=== PATIENT | female | born 1940 | race Caucasian/White ===

== ENCOUNTER 2016-08-19 15:19 | Inpatient (IN) | payer OTHER, MEDICARE ==
[~2016-08-19] VITALS: Ht 160 cm; Wt 59.8 kg
[~2016-08-19 15:19] MED LIST: ACYCLOVIR800 MG PO; ADVAIR 250/501 DISK IH; AMBIEN10 MG PO; Ambien PO; CALCIUM ACETAT667 MG PO; CALCIUM OYSTER500 MG PO; CARNITOR100 MG/ML PO; CEFUROXIME500 MG PO; CEPHALEXIN250 MG PO; CIPROFLOXACIN500 M1 PO; EPOGEN,PRO2000 UNITS IV; EXEMESTANE25 MG PO; EXTRA STRENGTH500 M1 PO; Epogen,Procrit IV; FAMOTIDINE20 MG PO; FLEXERIL10 MG PO; FLORASTOR250 MG PO; FOLBEE PLUS TABL5 MG PO; HECTOROL2 MCG/1 ML IV; HYDROCODON-ACE1 EAC7 PO; LEVOCARNIT100 MG/1 M PO; LOPRESSOR50 MG PO; Levaquin PO; MACROBID100 MG PO; METRONIDAZOLE500 MG PO; NEPHRO-VITE,1 TABLET PO; NORCO 5/3251 TABLET PO; Nephro-Vite,Rena-Vit PO; PHOSLYRA667 MG/5 M PO; PROCHLORPERAZINE5 MG PO; PROCRIT3000 UNIT1 IV; RESTORIL15 MG PO; TYLENOL 8 HOUR650 MG PO; TYLENOL REGULA325 MG PO; Tums PO; Tylenol Regular Stre PO; VENTOLIN HFA18 GM IH; VITAMIN C250 MG PO; ZOLPIDEM TARTRAT5 MG PO
[2016-08-19 16:20] LABS: EOSINOPHIL (%) 3.2 % (0-5); EOSINOPHIL COUNT 0.1 K/uL (0-0.3); IMMATURE GRANULOCYTE (%) 0.5 % (0.0-0.7); INSTRUMENT ABS NEUTROPHIL CT 2.2 K/uL; MCH 28.9 PG (29.0-34.0); MCHC 30.3 G/DL (30.0-36.0); MCV 95.5 FL (83-99); MONOCYTE (%) 9.6 % (3-12); MONOCYTE COUNT 0.4 K/uL (0-0.8); NEUTROPHIL (%) 59.1 % (45-76); NEUTROPHIL COUNT 2.2 K/uL (1.8-6.4); RBC DIS.WIDTH-CV 17.9 % (11.8-14.6); RBC DIS.WIDTH-SD 62.4 % (39-53); RED BLOOD COUNT 3.56 M/uL (3.80-5.20); WHITE BLOOD COUNT 3.8 K/uL (4.1-10.2)
[2016-08-19 16:31] LABS: CHLORIDE 107 mEq/L (99-109); SODIUM 140 mEq/L (136-147)
[2016-08-19 16:33] LABS: GLUCOSE 83 mg/dL (70-99)
[2016-08-19 16:34] LABS: ANION GAP 15 MEQ/L (2-14)
[2016-08-19 16:35] LABS: TOTAL BILIRUBIN 0.7 mg/dL (0.0-1.0)
[2016-08-19 16:37] LABS: ALKALINE PHOSPHATASE 98 IU/L (3-129); GFR ESTIMATE (CALCULATED) 5 mL/min/
[2016-08-19 16:38] LABS: UREA NITROGEN (BUN) 83 mg/dL (9-23)
[2016-08-19 16:40] LABS: LIPASE 28 U/L (1.0-51.0)
[2016-08-19 17:17] LABS: HEMATOLOGY COMMENT 1 SN; MEAN PLAT.VOLUME 10.7 uM^3 (9.5-12.4); PLAT.SUFFICIENCY DECREASED; PLATELET COUNT 91 K/uL (156-360)
[2016-08-19] MEDS ORDERED: ZOLPIDEM TARTRA10 MG PO (19:15)
[2016-08-19] MEDS ORDERED: CARVEDILOL6.25 MG PO (19:16)
[2016-08-19] MEDS ORDERED: ATARAX,VISTARIL25 MG PO (19:16)
[2016-08-19] MEDS ORDERED: FUROSEMIDE80 MG PO (19:17)
[2016-08-19 19:53] LABS: ADD MIUA? YES; BILIRUBIN NEGATIVE; BLOOD SMALL; COLOR YELLOW ((YELLOW)); GLUCOSE (STRIP) 50; KETONES NEGATIVE; LEUKOCYTES LARGE; NITRITE NEGATIVE; PROTEIN (STRIP) 100; UROBILINOGEN 0.2 MG/DL (0.2-1.0)
[2016-08-19] MEDS ORDERED: COREG12.5 M1 PO (21:02)
[2016-08-19] MEDS ORDERED: CIPRO500 MG PO (21:05)
[2016-08-19] MEDS ORDERED: FLAGYL500 MG PO (21:05)
[2016-08-19 21:13] LABS: BACTERIA 2+ /HPF; EPITHELIAL CELLS 1+ /HPF; MUCUS NONE SEEN /LPF; UCUL ADDED? YES; WHITE BLOOD CELLS TNTC /HPF (0-5)
[2016-08-20 04:21] VITALS: BP 175/81
[2016-08-20 08:28] VITALS: BP 174/78
[2016-08-20 09:46] LABS: INTER. NORMALIZED RATIO 1.2; PROTHROMBIN TIME 11.9 (9.2-11.2); PTT 29.8 (25-32)
[2016-08-20 10:48] LABS: C DIFF TOXIN NEGATIVE (NEGATIVE); PROBE CHECK PASS; SPECIMEN PROCESSING CONTROL PASS
[2016-08-20 10:58] VITALS: BP 126/59
[2016-08-20 12:11] LABS: METH RESISTANT S AUREUS PCR NEGATIVE (NEGATIVE)
[2016-08-20 12:12] LABS: PROBE CHECK PASS; SPECIMEN PROCESSING CONTROL PASS
[2016-08-20 13:11] LABS: CHLORIDE 107 mEq/L (99-109); SODIUM 137 mEq/L (136-147)
[2016-08-20 13:13] LABS: GLUCOSE 93 mg/dL (70-99)
[2016-08-20 13:14] LABS: ANION GAP 15 MEQ/L (2-14)
[2016-08-20 13:17] LABS: GFR ESTIMATE (CALCULATED) 5 mL/min/
[2016-08-20 13:18] LABS: UREA NITROGEN (BUN) 90 mg/dL (9-23)
[2016-08-20 16:51] VITALS: BP 158/69
[2016-08-20 18:36] LABS: HEMATOCRIT 29.9 % (36.0-46.0); MCHC 31.4 G/DL (30.0-36.0); MCV 92.3 FL (83-99); MEAN PLAT.VOLUME 9.5 uM^3 (9.5-12.4); PLATELET COUNT 93 K/uL (156-360); RBC DIS.WIDTH-SD 61.3 % (39-53); RED BLOOD COUNT 3.24 M/uL (3.80-5.20); WHITE BLOOD COUNT 3.4 K/uL (4.1-10.2)
[2016-08-20 20:39] VITALS: BP 157/70
[2016-08-20 23:18] VITALS: BP 133/62
[2016-08-21 00:44] LABS: HEMATOCRIT 29.5 % (36.0-46.0); MCH 29.6 PG (29.0-34.0); MCHC 31.9 G/DL (30.0-36.0); MCV 92.8 FL (83-99); PLATELET COUNT 98 K/uL (156-360); RBC DIS.WIDTH-CV 18.2 % (11.8-14.6); RBC DIS.WIDTH-SD 62.2 % (39-53); RED BLOOD COUNT 3.18 M/uL (3.80-5.20); WHITE BLOOD COUNT 3.1 K/uL (4.1-10.2)
[2016-08-21 04:37] VITALS: BP 138/60
[2016-08-21 07:00] LABS: HEMATOCRIT 30.6 % (36.0-46.0); MCH 28.7 PG (29.0-34.0); MCHC 30.7 G/DL (30.0-36.0); MCV 93.6 FL (83-99); MEAN PLAT.VOLUME 9.3 uM^3 (9.5-12.4); PLATELET COUNT 103 K/uL (156-360); RBC DIS.WIDTH-CV 18.1 % (11.8-14.6); RBC DIS.WIDTH-SD 62.9 % (39-53); RED BLOOD COUNT 3.27 M/uL (3.80-5.20); WHITE BLOOD COUNT 2.9 K/uL (4.1-10.2)
[2016-08-21 07:27] LABS: ANION GAP 13 MEQ/L (2-14); CHLORIDE 98 MEQ/L (99-109); GLUCOSE 79 mg/dL (70-99); IRON 73 MCG/DL (35-150); SAMPLE HEMOLYSIS CHECK 0; SAMPLE ICTERIC CHECK 0; SAMPLE LIPEMIA CHECK 0; SODIUM 138 MEQ/L (136-147)
[2016-08-21 07:28] LABS: GFR ESTIMATE (CALCULATED) 9 mL/min/; POTASSIUM 4.1 MEQ/L (3.7-5.4); UREA NITROGEN (BUN) 34 mg/dL (9-23)
[2016-08-21 07:55] VITALS: BP 134/64
[2016-08-21 09:21] LABS: HEMATOCRIT 31.6 % (36.0-46.0); MCH 29.1 PG (29.0-34.0); MCV 93.8 FL (83-99); MEAN PLAT.VOLUME 9.6 uM^3 (9.5-12.4); PLATELET COUNT 108 K/uL (156-360); RBC DIS.WIDTH-CV 18.2 % (11.8-14.6); RBC DIS.WIDTH-SD 62.4 % (39-53); RED BLOOD COUNT 3.37 M/uL (3.80-5.20)
[2016-08-21 12:05] VITALS: BP 94/48
[2016-08-21 12:57] LABS: FERRITIN 2477 NG/ML (10-291)
[2016-08-21 15:51] LABS: MCH 29.5 PG (29.0-34.0); MCHC 30.9 G/DL (30.0-36.0); MCV 95.2 FL (83-99); MEAN PLAT.VOLUME 9.4 uM^3 (9.5-12.4); PLATELET COUNT 107 K/uL (156-360); RBC DIS.WIDTH-CV 18.1 % (11.8-14.6); RBC DIS.WIDTH-SD 63.4 % (39-53); RED BLOOD COUNT 3.36 M/uL (3.80-5.20); WHITE BLOOD COUNT 3.4 K/uL (4.1-10.2)
[2016-08-21 16:56] VITALS: BP 108/56
[2016-08-21 19:14] VITALS: BP 113/53
[2016-08-21 23:52] VITALS: BP 106/49
[2016-08-22 01:05] LABS: HEMATOCRIT 30.2 % (36.0-46.0); MCHC 30.8 G/DL (30.0-36.0); MCV 94.1 FL (83-99); MEAN PLAT.VOLUME 9.4 uM^3 (9.5-12.4); PLATELET COUNT 93 K/uL (156-360); RBC DIS.WIDTH-CV 18.1 % (11.8-14.6); RBC DIS.WIDTH-SD 62.2 % (39-53); RED BLOOD COUNT 3.21 M/uL (3.80-5.20); WHITE BLOOD COUNT 3.3 K/uL (4.1-10.2)
[2016-08-22 04:44] VITALS: BP 115/56
[2016-08-22 07:37] VITALS: BP 110/53
[2016-08-22 07:49] LABS: HEMATOCRIT 31.4 % (36.0-46.0); MCH 29.8 PG (29.0-34.0); MCHC 30.9 G/DL (30.0-36.0); MCV 96.3 FL (83-99); PLATELET COUNT 113 K/uL (156-360); RBC DIS.WIDTH-CV 18.3 % (11.8-14.6); RBC DIS.WIDTH-SD 64.3 % (39-53); RED BLOOD COUNT 3.26 M/uL (3.80-5.20); WHITE BLOOD COUNT 3.1 K/uL (4.1-10.2)
[2016-08-22 11:29] VITALS: BP 114/56
[2016-08-22] MEDS ORDERED: BENTYL20 MG PO (12:39)
[2016-08-22] MEDS ORDERED: CARVEDILOL25 MG PO (12:42)
[2016-08-22] MEDS ORDERED: NIFEDIPINE ER30 MG PO (12:42)
[2016-08-22] MEDS ORDERED: LOPERAMIDE2 MG PO (12:43)
[2016-08-22] MEDS ORDERED: PROTONIX40 MG PO (12:53)
[2016-08-22 18:30] VITALS: BP 136/62
== END 2016-08-22 18:39 | disposition home or self-care (01) | DRG 689 ==
LOC: EME 15:19 → EDOF 08-20 03:17 → 4EAST 08-20 03:17
PROVIDERS: Emergency Medicine; Hospitalist; Internal Medicine Nephrology; Specialist
PROC: 5A1D60Z (ICD-10-PCS; principal; 2016-08-20)
DX: N39.0 Urinary tract infection, site not specified (principal); N18.6 End stage renal disease; K52.9 Noninfective gastroenteritis and colitis, unspecified; I71.01 Dissection of thoracic aorta; Z99.2 Dependence on renal dialysis; I12.0 Hypertensive chronic kidney disease with stage 5 chronic kidney disease or end stage renal disease; I27.2 Other secondary pulmonary hypertension; K92.1 Melena; Z91.19 Patient's noncompliance with other medical treatment and regimen; E78.5 Hyperlipidemia, unspecified; I35.0 Nonrheumatic aortic (valve) stenosis; E87.5 Hyperkalemia; D61.818 Other pancytopenia
CPT/HCPCS: 71275; 74177; 80048; 80053; 80069; 81003; 82272; 82607; 82728; 82746; 83540; 83690; 84466; 85025; 85027; 85610; 85730; 86900; 86901; 87077; 87086; 87177; 87329; 87493; 87506; 87641; 99281; 99284; C9113; J0360; J0744; J1956; J2405; J3010; S0028; S0030

== ENCOUNTER 2016-12-30 15:51 | Emergency (ER) | payer OTHER, MEDICARE ==
[~2016-12-30] VITALS: Ht 157.5 cm; Wt 67.4 kg
[~2016-12-30 15:51] MED LIST changes: +ATARAX,VISTARIL25 MG PO; +BENTYL20 MG PO; +CARVEDILOL25 MG PO; +CARVEDILOL6.25 MG PO; +CIPRO500 MG PO; +COREG12.5 M1 PO; +FLAGYL500 MG PO; +FUROSEMIDE80 MG PO; +LOPERAMIDE2 MG PO; +NIFEDIPINE ER30 MG PO; +PROTONIX40 MG PO; +ZOLPIDEM TARTRA10 MG PO
[2016-12-30 16:20] LABS: HEMATOCRIT 33.2 % (36.0-46.0); MCH 30.2 PG (29.0-34.0); MCHC 31.3 G/DL (30.0-36.0); MCV 96.5 FL (83-99); MEAN PLAT.VOLUME 9.5 uM^3 (9.5-12.4); PLATELET COUNT 85 K/uL (156-360); RBC DIS.WIDTH-CV 14.9 % (11.8-14.6); RBC DIS.WIDTH-SD 52.3 % (39-53); RED BLOOD COUNT 3.44 M/uL (3.80-5.20); WHITE BLOOD COUNT 3.1 K/uL (4.1-10.2)
[2016-12-30 16:28] LABS: CHLORIDE 101 mEq/L (99-109); POTASSIUM 5.2 mEq/L (3.7-5.4); SODIUM 141 mEq/L (136-147)
[2016-12-30 16:30] LABS: GLUCOSE 96 mg/dL (70-99)
[2016-12-30 16:31] LABS: ANION GAP 15 MEQ/L (2-14)
[2016-12-30 16:32] LABS: TOTAL BILIRUBIN 0.6 mg/dL (0.0-1.0)
[2016-12-30 16:34] LABS: ALKALINE PHOSPHATASE 79 IU/L (3-129); GFR ESTIMATE (CALCULATED) 4 mL/min/
[2016-12-30 16:35] LABS: UREA NITROGEN (BUN) 66 mg/dL (9-23)
[2016-12-30 17:45] LABS: LIPASE 20 U/L (1.0-51.0)
[2016-12-30 19:00] LABS: INTERNAL CONTROL VALID? YES
[2016-12-30 19:29] LABS: C DIFF TOXIN NEGATIVE (NEGATIVE)
[2016-12-30 19:43] LABS: PROBE CHECK PASS; SPECIMEN PROCESSING CONTROL PASS
[2016-12-30 20:32] VITALS: BP 130/78
== END 2016-12-30 20:35 | disposition home or self-care (01) ==
LOC: EME 15:51
PROVIDERS: Physician Assistant
DX: R19.7 Diarrhea, unspecified (principal); R10.84 Generalized abdominal pain; R11.0 Nausea; R42 Dizziness and giddiness; I12.0 Hypertensive chronic kidney disease with stage 5 chronic kidney disease or end stage renal disease; N18.6 End stage renal disease; Z99.2 Dependence on renal dialysis; K80.20 Calculus of gallbladder without cholecystitis without obstruction; N13.30 Unspecified hydronephrosis; R18.8 Other ascites; K57.30 Diverticulosis of large intestine without perforation or abscess without bleeding; I71.01 Dissection of thoracic aorta; Z85.41 Personal history of malignant neoplasm of cervix uteri; Z85.3 Personal history of malignant neoplasm of breast; Z87.891 Personal history of nicotine dependence
CPT/HCPCS: 74176; 80053; 81003; 83630; 83690; 85027; 87177; 87493; 87506; 99281; 99283

== ENCOUNTER 2017-03-08 17:48 | Inpatient (IN) | payer OTHER, MEDICARE ==
[~2017-03-08] VITALS: Ht 157.5 cm; Wt 68.0 kg
[2017-03-08 20:02] LABS: HEMATOCRIT 32.5 % (36.0-46.0); MCH 30.1 PG (29.0-34.0); MCHC 31.1 G/DL (30.0-36.0); MEAN PLAT.VOLUME 9.6 uM^3 (9.5-12.4); PLATELET COUNT 119 K/uL (156-360); RBC DIS.WIDTH-CV 15.9 % (11.8-14.6); RBC DIS.WIDTH-SD 56.8 % (39-53); RED BLOOD COUNT 3.35 M/uL (3.80-5.20); WHITE BLOOD COUNT 5.6 K/uL (4.1-10.2)
[2017-03-08 20:11] LABS: INTER. NORMALIZED RATIO 1.2; PROTHROMBIN TIME 13.4 SEC (10.2-12.9)
[2017-03-08 20:15] LABS: CHLORIDE 101 mEq/L (99-109); POTASSIUM 4.7 mEq/L (3.7-5.4); SODIUM 139 mEq/L (136-147)
[2017-03-08 20:16] LABS: GLUCOSE 95 mg/dL (70-99)
[2017-03-08 20:18] LABS: ANION GAP 12 MEQ/L (2-14)
[2017-03-08 20:20] LABS: GFR ESTIMATE (CALCULATED) 5 mL/min/
[2017-03-08 20:21] LABS: UREA NITROGEN (BUN) 47 mg/dL (9-23)
[2017-03-09 00:37] VITALS: BP 143/60
[2017-03-09 03:07] LABS: C DIFF TOXIN NEGATIVE (NEGATIVE)
[2017-03-09 03:10] LABS: PROBE CHECK PASS; SPECIMEN PROCESSING CONTROL PASS
[2017-03-09 04:10] VITALS: BP 144/67
[2017-03-09 08:00] VITALS: BP 152/66
[2017-03-09 09:42] LABS: EOSINOPHIL (%) 4.4 % (0-5); EOSINOPHIL COUNT 0.2 K/uL (0-0.3); HEMATOCRIT 31.8 % (36.0-46.0); IMMATURE GRANULOCYTE (%) 0.4 % (0.0-0.7); INSTRUMENT ABS NEUTROPHIL CT 3.7 K/uL; LYMPHOCYTE COUNT 0.5 K/uL (1.0-2.8); MCH 30.2 PG (29.0-34.0); MCHC 30.8 G/DL (30.0-36.0); MCV 97.8 FL (83-99); MEAN PLAT.VOLUME 10.1 uM^3 (9.5-12.4); MONOCYTE (%) 11.2 % (3-12); MONOCYTE COUNT 0.6 K/uL (0-0.8); NEUTROPHIL (%) 73.8 % (45-76); NEUTROPHIL COUNT 3.7 K/uL (1.8-6.4); PLATELET COUNT 122 K/uL (156-360); RBC DIS.WIDTH-SD 57.6 % (39-53); RED BLOOD COUNT 3.25 M/uL (3.80-5.20)
[2017-03-09 10:06] LABS: ANION GAP 13 MEQ/L (2-14); CHLORIDE 102 MEQ/L (99-109); POTASSIUM 4.7 MEQ/L (3.7-5.4); SAMPLE HEMOLYSIS CHECK 0; SAMPLE ICTERIC CHECK 0; SAMPLE LIPEMIA CHECK 0; SODIUM 141 MEQ/L (136-147)
[2017-03-09 10:11] LABS: GFR ESTIMATE (CALCULATED) 4 mL/min/; UREA NITROGEN (BUN) 52 mg/dL (9-23)
[2017-03-09 10:16] LABS: GLUCOSE 155 mg/dL (70-99)
[2017-03-09 11:29] LABS: HBSG INDEX 0.17
[2017-03-09 11:30] LABS: HEPATITIS B SURFACE ANTIBODY Nonreactive
[2017-03-09 16:05] VITALS: BP 143/63
[2017-03-09 20:00] VITALS: BP 156/70
[2017-03-10 00:02] VITALS: BP 173/74
[2017-03-10 04:06] VITALS: BP 152/70
[2017-03-10 06:52] LABS: EOSINOPHIL (%) 5.7 % (0-5); EOSINOPHIL COUNT 0.3 K/uL (0-0.3); HEMATOCRIT 32.5 % (36.0-46.0); IMMATURE GRANULOCYTE (%) 0.2 % (0.0-0.7); INSTRUMENT ABS NEUTROPHIL CT 3.4 K/uL; LYMPHOCYTE COUNT 0.4 K/uL (1.0-2.8); MCH 29.4 PG (29.0-34.0); MCHC 30.2 G/DL (30.0-36.0); MCV 97.6 FL (83-99); MONOCYTE (%) 13.2 % (3-12); MONOCYTE COUNT 0.6 K/uL (0-0.8); NEUTROPHIL (%) 71.1 % (45-76); NEUTROPHIL COUNT 3.4 K/uL (1.8-6.4); PLATELET COUNT 110 K/uL (156-360); RBC DIS.WIDTH-CV 15.8 % (11.8-14.6); RBC DIS.WIDTH-SD 56.8 % (39-53); RED BLOOD COUNT 3.33 M/uL (3.80-5.20); WHITE BLOOD COUNT 4.8 K/uL (4.1-10.2)
[2017-03-10 07:20] LABS: ANION GAP 12 MEQ/L (2-14); CHLORIDE 99 MEQ/L (99-109); POTASSIUM 4.6 MEQ/L (3.7-5.4); SAMPLE HEMOLYSIS CHECK 1; SAMPLE ICTERIC CHECK 0; SAMPLE LIPEMIA CHECK 0; SODIUM 139 MEQ/L (136-147); UREA NITROGEN (BUN) 27 mg/dL (9-23)
[2017-03-10 07:24] LABS: GFR ESTIMATE (CALCULATED) 7 mL/min/; GLUCOSE 93 mg/dL (70-99); VANCOMYCIN, TROUGH 8.3 MCG/ML (10-20)
[2017-03-10 08:50] VITALS: BP 147/64
[2017-03-10 11:18] VITALS: BP 139/70
[2017-03-10 15:21] VITALS: BP 152/88
[2017-03-10 19:47] VITALS: BP 136/64
[2017-03-11 00:31] VITALS: BP 156/72
[2017-03-11 05:18] VITALS: BP 153/66
[2017-03-11 07:26] VITALS: BP 145/65
[2017-03-11 08:40] LABS: EOSINOPHIL (%) 7.2 % (0-5); EOSINOPHIL COUNT 0.3 K/uL (0-0.3); HEMATOCRIT 32.3 % (36.0-46.0); IMMATURE GRANULOCYTE (%) 0.5 % (0.0-0.7); INSTRUMENT ABS NEUTROPHIL CT 2.7 K/uL; LYMPHOCYTE COUNT 0.5 K/uL (1.0-2.8); MCH 29.9 PG (29.0-34.0); MCHC 30.7 G/DL (30.0-36.0); MCV 97.6 FL (83-99); MEAN PLAT.VOLUME 9.8 uM^3 (9.5-12.4); MONOCYTE (%) 15.6 % (3-12); MONOCYTE COUNT 0.7 K/uL (0-0.8); NEUTROPHIL (%) 65.2 % (45-76); NEUTROPHIL COUNT 2.7 K/uL (1.8-6.4); PLATELET COUNT 113 K/uL (156-360); RBC DIS.WIDTH-CV 15.5 % (11.8-14.6); RBC DIS.WIDTH-SD 55.9 % (39-53); RED BLOOD COUNT 3.31 M/uL (3.80-5.20); WHITE BLOOD COUNT 4.2 K/uL (4.1-10.2)
[2017-03-11 08:46] LABS: ANION GAP 13 MEQ/L (2-14); CHLORIDE 101 MEQ/L (99-109); POTASSIUM 4.2 MEQ/L (3.7-5.4); SAMPLE HEMOLYSIS CHECK 0; SAMPLE ICTERIC CHECK 0; SAMPLE LIPEMIA CHECK 0; SODIUM 140 MEQ/L (136-147)
[2017-03-11] MEDS ORDERED: BACITRACIN28.4 GM TP (08:51)
[2017-03-11] MEDS ORDERED: EMLA TP (08:51)
[2017-03-11] MEDS ORDERED: ZINC OXIDE56.7 GM TP (08:51)
[2017-03-11] MEDS ORDERED: CALCIUM ACETAT667 MG PO (08:51)
[2017-03-11] MEDS ORDERED: GABAPENTIN300 MG PO (08:51)
[2017-03-11] MEDS ORDERED: AMOX TR-K CLV1 EAC3 PO (08:51)
[2017-03-11] MEDS ORDERED: Cortaid,Hytone 1% Cr TP (08:51)
[2017-03-11 08:52] LABS: GFR ESTIMATE (CALCULATED) 6 mL/min/; GLUCOSE 108 mg/dL (70-99); UREA NITROGEN (BUN) 37 mg/dL (9-23)
[2017-03-11] MEDS ORDERED: NIFEDIPINE ER30 MG PO (08:59)
[2017-03-11] MEDS ORDERED: ZOLPIDEM TARTRA10 MG PO (08:59)
[2017-03-11] MEDS ORDERED: FOSRENOL750 MG PO (08:59)
[2017-03-11] MEDS ORDERED: BACTROBAN OINTM22 GM TP (08:59)
[2017-03-11] MEDS ORDERED: FUROSEMIDE80 MG PO (08:59)
[2017-03-11] MEDS ORDERED: CARVEDILOL6.25 MG PO (09:00)
[2017-03-11] MEDS ORDERED: COMPAZINE10 MG PO (09:00)
== END 2017-03-11 14:20 | disposition home health service (06) | DRG 602 ==
LOC: EME 17:48 → EDOF 22:11 → 5SOUTH 22:11 → ENRESERV 22:13 → 5SOUTH 03-09 00:28 → EDOF 03-09 00:28 → ENPENDDIS 03-11 → 5SOUTH 03-11 14:20
PROVIDERS: Hospitalist; Internal Medicine Nephrology; Physician Assistant Medical
PROC: 5A1D70Z Performance of Urinary Filtration, Intermittent, Less than 6 Hours Per Day (ICD-10-PCS; principal; 2017-03-09)
DX: L03.116 Cellulitis of left lower limb (principal); L03.312 Cellulitis of back [any part except buttock and flank]; I12.0 Hypertensive chronic kidney disease with stage 5 chronic kidney disease or end stage renal disease; N18.6 End stage renal disease; G62.9 Polyneuropathy, unspecified; E83.39 Other disorders of phosphorus metabolism; J44.9 Chronic obstructive pulmonary disease, unspecified; I35.0 Nonrheumatic aortic (valve) stenosis; I27.20 Pulmonary hypertension, unspecified; G89.29 Other chronic pain; M54.9 Dorsalgia, unspecified; Z99.2 Dependence on renal dialysis; Z85.41 Personal history of malignant neoplasm of cervix uteri; Z85.3 Personal history of malignant neoplasm of breast; Z86.010 Personal history of colon polyps; Z87.891 Personal history of nicotine dependence
CPT/HCPCS: 71010; 80048; 80069; 80202; 85025; 85027; 85610; 86706; 87040; 87340; 87493; 93971; 94799; 99281; 99285; J0692; J1644; J2405; J2543; J3370; J7050; Q0169

== ENCOUNTER 2017-04-15 17:28 | Emergency (ER) | payer OTHER, MEDICARE ==
[~2017-04-15] VITALS: Ht 157.5 cm; Wt 63.0 kg
[~2017-04-15 17:28] MED LIST changes: +AMOX TR-K CLV1 EAC3 PO; +BACITRACIN28.4 GM TP; +BACTROBAN OINTM22 GM TP; +COMPAZINE10 MG PO; +Cortaid,Hytone 1% Cr TP; +EMLA TP; +FOSRENOL750 MG PO; +GABAPENTIN300 MG PO; +ZINC OXIDE56.7 GM TP
[2017-04-15 19:21] VITALS: BP 126/47
== END 2017-04-15 19:11 | disposition left against medical advice (07) ==
LOC: EME 17:28
DX: R19.7 Diarrhea, unspecified (principal); I12.9 Hypertensive chronic kidney disease with stage 1 through stage 4 chronic kidney disease, or unspecified chronic kidney disease; N18.9 Chronic kidney disease, unspecified; Z99.2 Dependence on renal dialysis; F41.9 Anxiety disorder, unspecified; Z85.41 Personal history of malignant neoplasm of cervix uteri; Z85.3 Personal history of malignant neoplasm of breast; Z87.891 Personal history of nicotine dependence; Z88.8 Allergy status to other drugs, medicaments and biological substances
CPT/HCPCS: 99281; 99284